=== PATIENT | male | born 1975 | race African-American/Black ===

== ENCOUNTER 2016-12-26 15:18 | Emergency (ER) ==
[2016-12-26 15:26] VITALS: BP 154/105; TEMP 98.8; BMI 29.5
[2016-12-26] MEDS ORDERED: SODIUM CHLORIDE 1,000 ML IV STA (15:27)
[2016-12-26] MEDS ORDERED: DILAUDID 1 MG/ML SYRINGE IVP STA (15:27)
[2016-12-26] MEDS ORDERED: ZOFRAN 4 MG/2 ML IVP STA (15:28)
--- NOTE | 2016-12-26 15:43 | DI ---
EXAM: Chest two views HISTORY: Cough COMPARISON: 02/02/2015 TECHNIQUE: Two views of the chest were performed FINDINGS: There is lower airway bronchial wall thickening. There is no focal airspace consolidatio n. There is no pleural effusion or pneumothorax. The heart is normal in size. The mediastinal cont our is normal. There is no acute abnormality of the bones. IMPRESSION: Lower airway thickening may represent reactive airways disease or bronchiolitis. No fo matti airspace consolidation.
[2016-12-26 15:52] LABS: BASOPHILS % (AUTO) 0.3 % (0.0-3.0); EOSINOPHILS # (AUTO) 0.1 K/ul (0.0-0.7); EOSINOPHILS % (AUTO) 1.2 % (0.0-7.0); HEMATOCRIT 43.8 % (42.0-52.0); HEMOGLOBIN 14.7 g/dl (14.0-18.0); IMMATURE GRANULOCYTE % (AUTO) 0.2 % (0.0-5.0); LYMPHOCYTES # (AUTO) 1.1 K/uL (0.60-3.4); LYMPHOCYTES % (AUTO) 11.6 (10.0-50.0); MEAN CORPUSCULAR HEMOGLOBIN 31.5 pg (27.0-31.0); MEAN CORPUSCULAR HGB CONC 33.6 (31.8-35.4); MEAN CORPUSCULAR VOLUME 93.8 fl (80.0-94.0); MONOCYTES # (AUTO) 1.8 K/uL (0.4-2.0); NEUTROPHILS # (AUTO) 6.5 K/ul (2.0-6.9); NEUTROPHILS % (AUTO) 67.7; PLATELET COUNT 183 10^3/uL (140-440); RED BLOOD COUNT 4.67 10^6/ul (4.70-6.10); WHITE BLOOD COUNT 9.54 K/ul (4.2-10.2)
[2016-12-26 15:53] LABS: BILIRUBIN,URINE Negative (NEGATIVE); KETONES,URINE Negative (NEGATIVE); LEUKOCYTE ESTERASE ,URINE Negative (NEGATIVE); NITRITE,URINE Negative (NEGATIVE); PH,URINE 5.5 (5-9); PROTEIN,URINE 3+ (NEGATIVE); URINE, BLOOD 1+ (NEGATIVE)
[2016-12-26 15:56] LABS: ADD URINE MICROSCOPIC YES
[2016-12-26 16:08] LABS: FLU INTERNAL QC INTERNAL QC VALID; RAPID FLU A NEGATIVE (NEGATIVE); RAPID FLU B NEGATIVE (NEGATIVE)
[2016-12-26 16:45] LABS: ALANINE AMINOTRANSFERASE 47 U/L (12-78); ALBUMIN 3.8 g/dL (3.4-5.0); ALBUMIN/GLOBULIN RATIO 1.06; ALKALINE PHOSPHATASE 79 U/L (50-136); ANION GAP 14.7; ASPARTATE AMINO TRANSFERASE 31 U/L (15-37); BILIRUBIN,TOTAL 0.39 mg/dL (0.00-1.20); BLOOD UREA NITROGEN 10 mg/dL (7-18); BUN/CREATININE RATIO 8.92; CALCIUM 8.9 mg/dL (8.2-10.2); CARBON DIOXIDE 22 mmol/L (21-32); CHLORIDE 106 mmol/L (98-107); CREATINE KINASE 258 U/L; CREATININE 1.12 mg/dL (0.60-1.10); GLUCOSE 104 mg/dL (70-100); POTASSIUM 3.7 mmol/L (3.5-5.1); SODIUM 139 mmol/L (136-145); TOTAL PROTEIN 7.4 g/dL (6.4-8.2)
[2016-12-26 16:48] LABS: CREATINE KINASE MB 1.9 ng/ml (0.0-3.6)
--- NOTE | 2016-12-26 16:53 | ED.PDOC ---
General ED Provider: Dr. CHANTE YIP-ER Chief Complaint: Non-specific Complaint Stated Complaint: im coughing and my legs hurt..son recently dx wtih "flu" Time Seen by Physician: 15:20 Information Source: Patient Exam Limitations: No limitations Nursing and Triage Documentation Reviewed and Agree: Yes Respiratory Complaint Exam - Respiratory Complaint/Exam Onset/Duration: 2 Symptoms Are: Still present Timing: Constant Initial Severity: Moderate Current Severity: Moderate Location: Chest Character: Reports: Non-productive cough Aggravating: Reports: URI Alleviating: Reports: None Associated Signs and Symptoms: Reports: URI, Nasal congestion, Sore throat. Denies: Rapid breathing, Dyspnea, Fever, Chills, Chest pain, Pleuritic chest pain, Wheezing, Hemoptysis, Dizziness, Calf pain, Calf swelling, Edema, Hoarseness, Sinus discomfort, Vomiting, Weight loss, Decreased oral intake, Increased thirst, Increased appetite, Increased urination Related History: Reports: Similar episode History of Healthcare-Acquired Pneumonia: No Home Oxygen Use: No Recent Stress Test: No Recent Echo/LV Function: No Current Antibiotic Use: No Current Asthma Medication Use: No Respiratory Distress: None Inadequate Respiratory Effort: No Dysphagia Present: No Stridor Present: No JVD Present: No Accessory Muscle Use: No Retractions: Not Present Diminished Breath Sounds: No Sinus Tenderness: None Grunting Respirations: No Kussmaul Respirations: No Differential Diagnoses: URI Review of Systems - Review Of Systems Constitutional: Reports: Fever Eyes: Reports: No symptoms Ears, Nose, Mouth, Throat: Reports: No symptoms Respiratory: Reports: Cough Cardiac: Reports: No symptoms GI: Reports: No symptoms : Reports: No symptoms Musculoskeletal: Reports: No symptoms Skin: Reports: No symptoms Neurological: Reports: No symptoms Endocrine: Reports: No symptoms Hematologic/Lymphatic: Reports: No symptoms All Other Systems: Reviewed and Negative Past Medical History - Past Medical History Previously Healthy: Yes Endocrine: Reports: None Cardiovascular: Reports: Hypertension Respiratory: Reports: None Hematological: Reports: None Gastrointestinal: Reports: None Genitourinary: Reports: None Neuro/Psych: Reports: None Musculoskeletal: Reports: Other Cancer: Reports: None - Surgical History General Surgical History: Reports: None - Family History Family History: Reports: None - Social History Smoking Status: Never smoker Hx Substance Use: Yes (marijuana) Alcohol Screening: Occasionally Physical Exam - Physical Exam Appearance: Well-appearing, No pain distress, Well-nourished Eyes: MESSI, EOMI, Conjunctiva clear ENT: Rhinorrhea Neck: Supple Respiratory: Airway patent, Breath sounds clear, Breath sounds equal, Respirations nonlabored Cardiovascular: RRR, Pulses normal, No rub, No murmur GI/: Soft, Nontender, No masses, Bowel sounds normal, No Organomegaly Musculoskeletal: Normal strength, ROM intact, No edema, No calf tenderness Skin: Warm, Dry, Normal color Neurological: Sensation intact, Motor intact, Reflexes intact, Cranial nerves intact, Alert, Oriented Psychiatric: Affect appropriate, Mood appropriate Interpretation - Radiology Interpretation Radiology Interpretation By: Radiologist Radiology Results: Negative Exam Interpreted: CXR Re-Evaluation - Re-Evaluation Time of Re-Evaluation: 16:53 Status: Improved Vital Signs Stable: Yes Pain Level: o Appearance: NAD Lungs: Clear Skin: Warm and Dry Neuro: Alert and Oriented X3 CV: RRR Critical Care Note - Critical Care Note Total Time (mins): 0 Course - Course Hematology/Chemistry: 12/26/16 15:26 12/26/16 15:40 Orders, Labs, Meds: Lab Review 12/26/16 12/26/16 12/26/16 15:26 15:35 15:40 WBC 9.54 RBC 4.67 L Hgb 14.7 Hct 43.8 MCV 93.8 MCH 31.5 H MCHC 33.6 RDW Coeff of [place] 12.6 Plt Count 183 Immature Gran % (Auto) 0.2 Neut % (Auto) 67.7 Lymph % (Auto) 11.6 [place] % (Auto) 19.0 H Eos % (Auto) 1.2 Baso % (Auto) 0.3 Immature Gran # (Auto) 0.0 Neut # 6.5 Lymph # 1.1 [place] # 1.8 Eos # 0.1 Baso # 0.0 ESR Pending D-Dimer 0.39 Sodium 139 Potassium 3.7 Chloride 106 Carbon Dioxide 22 Anion Gap 14.7 BUN 10 Creatinine 1.12 H Estimated GFR (MDRD) 88.00 BUN/Creatinine Ratio 8.92 Glucose 104 H Calcium 8.9 Total Bilirubin 0.39 AST 31 ALT 47 Alkaline Phosphatase 79 Total Creatine Kinase 258 CK-MB (CK-2) 1.9 CK-MB (CK-2) % 0.09582 Troponin I < 0.0100 Total Protein 7.4 Albumin 3.8 Globulin 3.6 Albumin/Globulin Ratio 1.06 Urine Color Urine Clarity Urine pH Ur Specific [place] Urine Protein Urine Glucose (UA) Urine Ketones Urine Blood Urine Nitrite Urine Bilirubin Urine Urobilinogen Ur Leukocyte Esterase Urine Microscopic RBC Urine Microscopic WBC Ur Squamous Epith Cells Influenza A (Rapid) Negative Influenza B (Rapid) Negative 12/26/16 15:42 WBC RBC Hgb Hct MCV MCH MCHC RDW Coeff of [place] Plt Count Immature Gran % (Auto) Neut % (Auto) Lymph % (Auto) [place] % (Auto) Eos % (Auto) Baso % (Auto) Immature Gran # (Auto) Neut # Lymph # [place] # Eos # Baso # ESR D-Dimer Sodium Potassium Chloride Carbon Dioxide Anion Gap BUN Creatinine Estimated GFR (MDRD) BUN/Creatinine Ratio Glucose Calcium Total Bilirubin AST ALT Alkaline Phosphatase Total Creatine Kinase CK-MB (CK-2) CK-MB (CK-2) % Troponin I Total Protein Albumin Globulin Albumin/Globulin Ratio Urine Color Yellow Urine Clarity Clear Urine pH 5.5 Ur Specific [place] >=1.030 Urine Protein 3+ Urine Glucose (UA) Negative Urine Ketones Negative Urine Blood 1+ Urine Nitrite Negative Urine Bilirubin Negative Urine Urobilinogen 1.0 Ur Leukocyte Esterase Negative Urine Microscopic RBC 0-2 Urine Microscopic WBC 0-2 Ur Squamous Epith Cells 0-2 Influenza A (Rapid) Influenza B (Rapid) Orders Category Date Time Status EKG-(ED ONLY) Stat CARDIO 12/26/16 15:26 Ordered ED IV/MEDIPORT/POWERPORT .ONCE EMERGENCY 12/26/16 15:27 Active CBC W/ AUTO DIFF Stat LAB 12/26/16 15:26 Results COMPREHENSIVE METABOLIC PANEL Stat LAB 12/26/16 15:40 Completed CREATINE KINASE Stat LAB 12/26/16 15:40 Completed D-DIMER Stat LAB 12/26/16 15:26 Completed ESR Stat LAB 12/26/16 15:26 Results MOLECULAR GROUP A STREP Stat LAB 12/26/16 15:35 Results RAPID FLU A/B Stat LAB 12/26/16 15:35 Completed STREP SCREEN Stat LAB 12/26/16 15:35 Results TROPONIN I Stat LAB 12/26/16 15:40 Completed URINALYSIS C & S IF INDICATED Stat LAB 12/26/16 15:42 Completed 0.9 % Sodium Chloride [Saline Flush] MEDS 12/26/16 15:27 Ordered 1 syr IVF PRN PRN Hydromorphone HCl [Dilaudid 1 mg/ml Syringe] MEDS 12/26/16 15:27 Discontinued 0.5 mg IVP ONCE STA Ondansetron HCl/Pf [Zofran 4 mg/2 ml] MEDS 12/26/16 15:28 Discontinued 4 mg IVP ONCE STA Sodium Chloride 0.9% [Sodium Chloride] 1,000 ml MEDS 12/26/16 15:27 Discontinued IV BOLUS CXR [CHEST, 2 VIEWS PA & LAT] Stat RADS 12/26/16 15:27 Completed Medications Generic Name Dose Route Start Last Admin Trade Name Freq PRN Reason Stop Dose Admin Sodium Chloride 1 syr 12/26/16 15:27 12/26/16 15:46 Saline Flush IVF 1 syr PRN PRN Administration To flush IV Discontinued Medications Generic Name Dose Route Start Last Admin Trade Name Freq PRN Reason Stop Dose Admin Hydromorphone HCl 0.5 mg 12/26/16 15:27 12/26/16 16:04 Dilaudid 1 Mg/Ml Syringe IVP 12/26/16 15:28 0.5 mg ONCE STA Administration Sodium Chloride 1,000 mls @ 1,000 mls/hr 12/26/16 15:27 12/26/16 15:47 Sodium Chloride IV 12/26/16 16:26 1,000 mls/hr BOLUS STA Administration Ondansetron HCl 4 mg 12/26/16 15:28 12/26/16 15:54 Zofran 4 Mg/2 Ml IVP 12/26/16 15:29 4 mg ONCE STA Administration Vital Signs: Temp Pulse Resp BP Pulse Ox 12/26/16 15:18 98.8 F 82 16 154/105 H 99 Departure - Departure Time of Disposition: 16:53 Disposition: HOME SELF-CARE Discharge Problem: Bronchitis Instructions: Acute Bronchitis (ED) Condition: Good Pt referred to PMD for follow-up: Yes Additional Instructions: keflex 500mg bid x 7 days--tessalon perles 200mg tid prn cough 30--talk to your pcp about protein in the urine Allergies/Adverse Reactions: Allergies No Known Allergies Allergy (Verified 12/26/16 15:28) Home Medications: Ambulatory Orders 1 [No Reported Medications] 12/26/16 Disposition Discussed With: Patient, Family
[2016-12-26 17:05] LABS: ERYTHROCYTE SEDIMENTATION RATE 9 mm/hr (0-15); ESR INTERNAL QC INTERNAL QC VALID
== END 2016-12-26 17:14 | disposition home or self-care (01) ==
LOC: ED 15:18
DX: J20.9 Acute bronchitis, unspecified (principal)
CPT/HCPCS: 36415; 80053; 81001; 82550; 82553; 84484; 85025; 85379; 85651; 87651; 87804; 87880; 93005; 93010; 96361; 96374; 96375; 99284

== ENCOUNTER 2017-08-21 18:09 | Emergency (ER) ==
[2017-08-21 18:09] VITALS: BMI 29.5
[2017-08-21 18:14] VITALS: TEMP 98.3
[2017-08-21] MEDS ORDERED: DEMEROL 50 MG/ML SYRINGE IM STA (18:26)
[2017-08-21] MEDS ORDERED: PHENERGAN 25 MG/ML VIAL IM STA (18:26)
--- NOTE | 2017-08-21 19:08 | ED.PDOC ---
General ED Provider: Dr. HINA ZIMMERMAN Chief Complaint: Back Pain Stated Complaint: Patient is a 41 year old patient who comes to the ER with back pain that started his PM while he was moving furniture into a new home today, and began to experience back pain at approximately 1500 this afternoon. Patient states that he attempted to lift a deep freeze and when he bent, he began to feel pain immediately Time Seen by Physician: 19:06 Mode of Arrival: Walk-In Information Source: Patient Exam Limitations: No limitations Nursing and Triage Documentation Reviewed and Agree: Yes Review of Systems - Review Of Systems Constitutional: Reports: No symptoms Eyes: Reports: No symptoms Ears, Nose, Mouth, Throat: Reports: No symptoms Respiratory: Reports: No symptoms Cardiac: Reports: No symptoms GI: Reports: No symptoms : Reports: No symptoms Musculoskeletal: Reports: Back pain Skin: Reports: No symptoms Neurological: Reports: No symptoms Endocrine: Reports: No symptoms Hematologic/Lymphatic: Reports: No symptoms All Other Systems: Reviewed and Negative Past Medical History - Past Medical History Previously Healthy: Yes Endocrine: Reports: None Cardiovascular: Reports: Hypertension Respiratory: Reports: None Hematological: Reports: None Gastrointestinal: Reports: None Genitourinary: Reports: None Neuro/Psych: Reports: None Musculoskeletal: Reports: Other Cancer: Reports: None - Surgical History General Surgical History: Reports: None - Family History Family History: Reports: None - Social History Smoking Status: Never smoker Hx Substance Use: Yes (marijuana) Alcohol Screening: Occasionally - Immunizations Tetanus Shot up to Date: No Physical Exam - Physical Exam Appearance: Ill-appearing Pain Distress: Severe Respiratory: Airway patent, Breath sounds clear Cardiovascular: RRR, Pulses normal, No rub, No murmur GI/: Soft, Nontender, No masses, Bowel sounds normal, No Organomegaly Musculoskeletal: Limited ROM Skin: Warm, Dry Neurological: Sensation intact, Motor intact, Reflexes intact, Alert, Oriented Psychiatric: Anxious Critical Care Note - Critical Care Note Total Time (mins): 0 Course - Course Orders, Labs, Meds: Orders Category Date Time Status Meperidine HCl/Pf [Demerol 50 mg/ml Syringe] MEDS 08/21/17 18:26 Discontinued 50 mg IM ONCE STA Promethazine HCl [Phenergan 25 mg/ml Vial] MEDS 08/21/17 18:26 Discontinued 25 mg IM ONCE STA Medications Discontinued Medications Generic Name Dose Route Start Last Admin Trade Name Freq PRN Reason Stop Dose Admin Meperidine HCl 50 mg 08/21/17 18:26 08/21/17 18:43 Demerol 50 Mg/Ml Syringe IM 08/21/17 18:27 50 mg ONCE STA Administration Promethazine HCl 25 mg 08/21/17 18:26 08/21/17 18:44 Phenergan 25 Mg/Ml Vial IM 08/21/17 18:27 25 mg ONCE STA Administration Vital Signs: Temp Pulse Resp BP Pulse Ox 08/21/17 19:09 167/100 H 08/21/17 18:09 98.3 F 69 20 147/112 H 98 Departure - Departure Time of Disposition: 19:08 Disposition: HOME SELF-CARE Discharge Problem: Thoracic back sprain Qualifiers: Encounter type: initial encounter Qualified Code(s): S23.9XXA - Sprain of unspecified parts of thorax, initial encounter Instructions: Low Back Strain (ED) Condition: Fair Pt referred to PMD for follow-up: Yes Additional Instructions: Follow up with pcp in 3 days Rest Take medications as prescribed Prescriptions: Hydrocodone/Acetaminophen [[place] 5-325 Tablet] 1 tab PO Q6HR PRN #12 tablet PRN Reason: PAIN Ibuprofen [Motrin] 600 mg PO Q6H PRN #30 tablet PRN Reason: Analgesia Allergies/Adverse Reactions: Allergies No Known Allergies Allergy (Verified 08/21/17 18:14) Home Medications: Ambulatory Orders Hydrocodone/Acetaminophen [[place] 5-325 Tablet] 1 tab PO Q6HR PRN #12 tablet Ibuprofen [Motrin] 600 mg PO Q6H PRN #30 tablet 08/21/17 Disposition Discussed With: Patient, Family
[2017-08-21 19:09] VITALS: BP 167/100
== END 2017-08-21 19:40 | disposition home or self-care (01) ==
LOC: ED 18:09
DX: S23.9XXA Sprain of unspecified parts of thorax, initial encounter (principal); X50.0XXA Overexertion from strenuous movement or load, initial encounter
CPT/HCPCS: 96372; 99282

== ENCOUNTER 2019-06-30 15:08 | Outpatient (CLI) | END 2019-06-30 15:09 | disposition home or self-care (01) | LOC: RHC-LAB 15:08 → FCC-LAB 15:09 | PROVIDERS: ATTEND Family Medicine | DX: I10 Essential (primary) hypertension (principal) | CPT/HCPCS: 36415; 80053; 80061 ==